=== PATIENT | male | born 1990 | race Caucasian/White ===

== ENCOUNTER 2024-05-01 08:00 | Emergency (ER) | payer SELFPAY ==
[~2024-05-01] VITALS: Ht 167.6 cm; Wt 120.0 kg
[2024-05-01 08:03] VITALS: O2SAT 98
[2024-05-01] MEDS: ACETAMINOPHEN 325MG TABLET PO ONE (09:30)
[2024-05-01] MEDS ORDERED: TOPUD PO (10:43)
[2024-05-01 11:17] VITALS: BP 128/74; PULSE 89; RESP 16; O2SAT 98
== END 2024-05-01 11:18 | disposition home or self-care (01) ==
LOC: ER 08:00
DX: M79.18 Myalgia, other site (principal); M25.471 Effusion, right ankle; M25.579 Pain in unspecified ankle and joints of unspecified foot; M54.50 Low back pain, unspecified; R07.89 Other chest pain
CPT/HCPCS: 71045; 72100; 73110; 73610; 93005; 99284